=== PATIENT | male | born 1975 | race Two or more races ===

== ENCOUNTER 2025-10-27 16:49 | Emergency (ER) | payer OTHER ==
[~2025-10-27] VITALS: Ht 157.5 cm; Wt 78.8 kg
[2025-10-27 16:52] VITALS: BP 163/90; PULSE 91; RESP 16; TEMP 98.4; O2SAT 100
--- NOTE | 2025-10-27 18:46 | ED.PDOC ---
Musculoskeletal HPI Comments 50 year old male presents to ER with complaints of left foot pain since 08/06/25. Patient reports he dropped a piece of metal on his left foot on 08/06/25 at work and has since been experiencing pain/swelling and numbness/tingling to left foot. Notes he's been seen twice at 2 different hospitals, diagnosed with fractures to left foot and has also f/u with [employer] as directed but has never been refereed to or been seen by an orthopedic/tire center manager. Notes he f/u with his [employer] doctor again today and was referred "to come to ER". Patient presents to ER ambulatory on arrival, favoring right leg on ambulation. Notes he does have crutches/walking boot but did not bring them to ER. Denies left ankle pain, left calf pain, fever, further skin changes or any further symptoms/complaints Chief Complaint: Lower Extremity Time Seen by MD: 18:09 Primary Care Provider: UNKNOWN Reviewed Notes: Nurses Notes, Medications, Allergies Allergies: Coded Allergies: NO KNOWN ALLERGIES (Unverified , 10/27/25) Mode of Arrival: Ambulatory Past Medical History PAST MEDICAL HISTORY: Denies Surgical History: Denies all surgeries Family History Family History: Unknown Social History Smoker: Non-Smoker Alcohol: Denies ETOH Use Drugs: Denies Drug Use Lives In: Home Constitutional: denies: chills, diaphoresis, fatigue, fever, malaise, sweats, weakness, others EENTM: denies: blurred vision, double vision, ear bleeding, ear discharge, ear drainage, ear pain, ear ringing, eye pain, eye redness, hearing loss, mouth pain, mouth swelling, nasal discharge, nose bleeding, nose congestion, nose pain, photophobia, tearing, throat pain, throat swelling, voice changes, others Respiratory: denies: cough, hemoptysis, orthopnea, SOB at rest, shortness of breath, SOB with excertion, stridor, wheezing, others Cardiovascular: denies: chest pain, dizzy spells, diaphoresis, Dyspnea on exertion, edema, irregular heart beat, left arm pain, lightheadedness, palpitations, PND, syncope, others Gastrointestinal: denies: abdomen distended, abdominal pain, blood streaked bowels, constipated, diarrhea, dysphagia, difficulty swallowing, hematemesis, melena, nausea, poor appetite, poor fluid intake, rectal bleeding, rectal pain, vomiting, others Genitourinary: denies: burning, dysuria, flank pain, frequency, hematuria, incontinence, penile discharge, penile sore, pain, testicle pain, testicle swelling, urgency, others Neurological: denies: dizziness, fainting, headache, left sided numbness, left sided weakness, numbness, paresthesia, pre-existing deficit, right sided numbness, right sided weakness, seizure, speech problems, tingling, tremors, weakness, others Musculoskeletal: reports: others (As stated in HPI) Integumetry: reports: others (As stated in HPI) Allergic/Immunocompromised: denies: Difficulty Healing, Frequent Infections, Hives, Itching, others Hematologic/Lymphatic: denies: anemia, blood clots, easy bleeding, easy bruising, swollen glands, others Endocrine: denies: excessive hunger, excessive sweating, excessive thirst, excessive urination, flushing, intolerance to cold, intolerance to heat, unexplained weight gain, unexplained weight loss, others Psychiatric: denies: anxiety, bipolar disorder, depression, hopeless, panic disorder, schizophrenia, sleepless, suicidal, others Physical Exam General Appearance: No Apparent Distress, Obese HEENT: PERRL/EOMI Neck: Full Range of Motion, Non-Tender, Normal Respiratory: Chest Non-Tender, Lungs Clear, No Accessory Muscle Use, No Respiratory Distress, Normal Breath Sounds Cardiovascular: No Murmur, No Gallop, Regular Rate/Rhythm Breast Exam: Deferred Gastrointestinal: NOT DONE Genitalia: Deferred Pelvic: Deferred Rectal: Deferred Extremities: No calf tenderness, Normal capillary refill, Normal range of motion Musculoskeletal : Extremity Location: Foot Neurologic: Alert, No Motor Deficits, Normal Affect, Normal Mood, No Sensory Deficits Cerebellar Function: Normal Reflexes: Normal Skin: Dry, Normal Color, Warm Peripheral Pulses: 2+ dorsalis pedis (R), 2+ dorsalis pedis (L), 2+ Radial (R), 2+ Radial (L), 2+ Brachial (R), 2+ Brachial (L) Lymphatic: No Adenopathy Was a procedure done? Was a procedure done?: No Sedation Sedation?: No Images 1 - TTP/moderate swelling noted.No erythema/further skin changes noted. No TTP to left ankle noted. Pulses intact, patient able to move all toes of left foot. Patient favors right leg on ambulation Differential Diagnosis EXT Differential Diagnosis: Deep Vein Thrombosis, Dislocation, Laceration, Neurovascular injury X-Ray, Labs, Meds, VS Vital Signs Date Time Temp Pulse Resp B/P (MAP) Pulse Ox O2 Delivery O2 Flow Rate FiO2 10/27/25 16:52 98.4 91 16 163/90 100 98.4 PATIENT: KRANTHI PRITCHETTOACCT: [id number]: [id number] : 1975 LOC: ER ROOM / BED: / AGE / SEX: 50 / M ADM STATUS: REG ER SERVICE 08 ORDERING PHYSICIAN: DEON CARDONA PROCEDURE(s): LFOOT - L FOOT 3 VIEW XRAY REASON: left foot pain ORDER NUMBER(s): [id number], ACCESSION NUMBER(s): [id number] Indication: left foot pain Technique: XY L FOOT 3 VIEW XRAYXY Comparison: None FINDINGS/IMPRESSION: Extensive disorganization, dystrophic calcification changes and productive osteophytosis involving the midfoot, tarsometatarsal joints. There are fracture deformities of the medial, middle, lateral cuneiform bones, cuboid bone. This is especially pronounced involving the medial cuneiform bone. There is fracture deformity at the base of the 1st metatarsal bone. There are destructive changes at the base of the 2nd, 3rd metatarsal bones.Disorganization/ dislocation involving the tarsometatarsal joints. 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 These findings likely represent underlying Charcot foot however synchronous acute fracture/ injury can not be ruled out. Correlate clinically. Atherosclerotic calcification disease. Moderate degenerate changes 1st MTP joint. Moderate degenerate changes of the PIP and D IP joints. Diffuse left foot soft tissue edema. A CT of the left foot/ MRI left foot can be obtained to further evaluate as clinically warranted. ATED BY: KEYANNA ALEGRIA MD DICTATED DATE/TIME: 10/27/251856 SIGNED BY: KEYANNA ALEGRIA MD SIGNED DATE/TIME: 10/27/251856 CC: Left foot x-ray reviewed Patient neurovascularly intact Advised on continued use of walking boot/crutches as directed Advised on elevation and alternate ice on/off as needed for pain/swelling Toradol 60 mg IM ordered [employer] paperwork filled out Advised to follow up with PCP, tire center manager/orthopedics and [employer] [facility] in 1-2 days Patient verbalized understanding and agreeable with current plan of care Advised to return to ER immediately if symptoms worsen Images Reviewed?: Images reviewed and evaluated by me Time of 1ST Reevaluation: 18:20 Reevaluation 1ST: N/A Patient Education/Counseling: Diagnosis, Treatment, Prognosis, Need For Follow Up Family Education/Counseling: No Family Present Departure 1 Departure Time of Disposition: 18:42 Impression: Primary Impression: Multiple fractures of left foot Qualified Codes: S92.902A - Unspecified fracture of left foot, initial encounter for closed fracture Additional Impressions: Chronic pain in left foot Work related injury Disposition: 01 HOME / SELF CARE / HOMELESS Condition: Stable e-Prescriptions Acetaminophen W/ Codeine (Tylenol W/Cod #3) 1 Tab Tb 1 TAB PO Q6HPRN, #10 TAB 0 Refills Prov: DEON CARDONA 10/27/25 Discharged With: Friend Critical Care Note Critical Care Time?: No Stability Stability form required: No Heart Score Heart Score: Heart Score Response (Comments) Value History N/A 0 EKG N/A 0 Age N/A 0 Risk Factors N/A 0 Troponin N/A 0 Total 0 DEON CARDONA Oct 27, 2025 18:46
--- NOTE | 2025-10-27 18:54 | DVH ---
Indication: left foot pain Technique: XY L FOOT 3 VIEW XRAYXY Comparison: None FINDINGS/IMPRESSION: Extensive disorganization, dystrophic calcification changes and productive osteophytosis involving the midfoot, tarsometatarsal joints. There are fracture deformities of the medial, middle, lateral cuneiform bones, cuboid bone. This is especially pronounced involving the medial cuneiform bone. There is fracture deformity at the base of the 1st metatarsal bone. There are destructive changes at the base of the 2nd, 3rd metatarsal bones.Disorganization/ dislocation involving the tarsometatarsal joints. 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 These findings likely represent underlying Charcot foot however synchronous acute fracture/ injury can not be ruled out. Correlate clinically. Atherosclerotic calcification disease. Moderate degenerate changes 1st MTP joint. Moderate degenerate changes of the PIP and D IP joints. Diffuse left foot soft tissue edema. A CT of the left foot/ MRI left foot can be obtained to further evaluate as clinically warranted.
[2025-10-27] MEDS ORDERED: ACE3T PO (19:19)
[2025-10-27] MEDS: KETOROLAC TROMETH 60MG/2ML VIAL IM ONE (19:34)
== END 2025-10-27 19:38 | disposition home or self-care (01) ==
LOC: ER 16:49
DX: S92.902A Unspecified fracture of left foot, initial encounter for closed fracture (principal); G89.29 Other chronic pain; X58.XXXA Exposure to other specified factors, initial encounter; Y93.89 Activity, other specified; Y92.89 Other specified places as the place of occurrence of the external cause; Y99.0 Civilian activity done for income or pay
CPT/HCPCS: 73630; 96372; 99283; J1885